=== PATIENT | female | born 1995 | race African-American/Black ===

== ENCOUNTER 2019-10-30 13:56 | Emergency (ER) | payer MEDICAID ==
[~2019-10-30] VITALS: Ht 170.2 cm; Wt 59.0 kg
[2019-10-30 14:37] VITALS: BP 124/84
[2019-10-30] MEDS ORDERED: IBUPROFEN 600MG TABLET PO STA (14:37)
== END 2019-10-30 15:16 | disposition home or self-care (01) ==
LOC: ER 13:56
DX: K02.9 Dental caries, unspecified (principal); Z98.890 Other specified postprocedural states
CPT/HCPCS: 99283

== ENCOUNTER 2022-01-05 10:56 | Emergency (ER) | payer MEDICAID ==
[~2022-01-05] VITALS: Ht 172.7 cm; Wt 59.0 kg
[2022-01-05 11:59] LABS: CLARITY URINE CLEAR (CLEAR); COLOR URINE YELLOW (YELLOW); KETONES URINE 1+ (NEGATIVE); LEUKOCYTE ESTERASE URINE NEGATIVE (NEGATIVE); NITRITE URINE NEGATIVE (NEGATIVE); OCCULT BLOOD URINE NEGATIVE (NEGATIVE); PROTEIN URINE TRACE (NEGATIVE); SPECIFIC GRAVITY URINE 1.027 (1.005-1.030)
[2022-01-05] MEDS ORDERED: METOCLOPRAMIDE HCL 10MG TABLET PO ONE (12:30)
[2022-01-05] MEDS ORDERED: ACETAMINOPHEN 325MG TABLET PO ONE (12:30)
[2022-01-05 13:37] LABS: BASOPHILS % 0.5 % (0.0-2.0); EOSINOPHILS % 2.6 % (0.0-5.0); HEMATOCRIT. 35.3 % (36.0-48.0); HEMOGLOBIN. 11.7 g/dL (12.0-16.0); LYMPHOCYTES % 36.6 % (20.0-50.0); MEAN CORPUSCULAR HEMOGLOBIN 26.2 pg (28.0-32.0); MEAN CORPUSCULAR VOLUME 79.2 fL (81.0-99.0); NEUTROPHILS % 49.3 % (40.0-76.0); PLATELET 194 x1000/uL (130-400); RED BLOOD CELL COUNT 4.45 mill/uL (4.2-5.4); RED CELL DISTRIBUTION WIDTH 15.6 % (11.6-14.6)
[2022-01-05 13:44] LABS: CHLORIDE 108 mEq/L (98-107)
[2022-01-05 13:57] LABS: B-HCG QUANTITATIVE < 1 mIU/mL (<3)
[2022-01-05] MEDS ORDERED: MUPI15CR11 TP (15:09)
[2022-01-05] MEDS ORDERED: CLOT15CR27 TP (15:09)
[2022-01-05 15:16] VITALS: BP 111/74
== END 2022-01-05 15:16 | disposition home or self-care (01) ==
LOC: ER 10:56
DX: R10.84 Generalized abdominal pain (principal); Z98.890 Other specified postprocedural states
CPT/HCPCS: 36415; 76700; 80053; 81003; 81025; 84702; 85025; 99284; J8597

== ENCOUNTER 2022-07-04 09:26 | Emergency (ER) | payer MEDICAID ==
[~2022-07-04] VITALS: Ht 172.7 cm; Wt 63.0 kg
[~2022-07-04 09:26] MED LIST: CLOT15CR27 TP; MUPI15CR11 TP
[2022-07-04 10:17] VITALS: BP 138/68
[2022-07-04] MEDS ORDERED: MAGNESIUM/ALUMINUM HYDROXIDE/SIMETHICONE 30ML UDC PO ONE (11:45)
[2022-07-04] MEDS ORDERED: HYDROCODONE/ACETAMINOPHEN 5/325MG TABLET PO ONE (11:45)
[2022-07-04 11:59] LABS: CLARITY URINE CLEAR (CLEAR); COLOR URINE YELLOW (YELLOW); KETONES URINE NEGATIVE (NEGATIVE); LEUKOCYTE ESTERASE URINE NEGATIVE (NEGATIVE); NITRITE URINE NEGATIVE (NEGATIVE); OCCULT BLOOD URINE TRACE (NEGATIVE); PROTEIN URINE NEGATIVE (NEGATIVE); SPECIFIC GRAVITY URINE 1.014 (1.005-1.030)
[2022-07-04 12:13] LABS: EOSINOPHILS % 2.7 % (0.0-5.0); HEMATOCRIT. 35.8 % (36.0-48.0); HEMOGLOBIN. 12.1 g/dL (12.0-16.0); LYMPHOCYTES % 35.3 % (20.0-50.0); MEAN CORPUSCULAR HEMOGLOBIN 28.2 pg (28.0-32.0); MEAN CORPUSCULAR VOLUME 83.2 fL (81.0-99.0); MEAN PLATELET VOLUME 7.9 fl (7.4-10.4); MONOCYTES % 10.4 % (2.0-8.0); NEUTROPHILS % 50.6 % (40.0-76.0); PLATELET 168 x1000/uL (130-400); RED CELL DISTRIBUTION WIDTH 14.9 % (11.6-14.6)
[2022-07-04 12:25] LABS: CHLORIDE 113 mEq/L (98-107)
[2022-07-04 12:56] LABS: HCG SCREEN NEGATIVE
[2022-07-04] MEDS ORDERED: T3 PO (14:02)
== END 2022-07-04 14:05 | disposition home or self-care (01) ==
LOC: ER 09:26
DX: R10.9 Unspecified abdominal pain (principal); Z98.890 Other specified postprocedural states
CPT/HCPCS: 36415; 74176; 76705; 80053; 81003; 81025; 84703; 85025; 99284

== ENCOUNTER 2022-09-16 21:57 | Emergency (ER) | payer MEDICAID ==
[~2022-09-16] VITALS: Ht 172.7 cm; Wt 63.0 kg
[2022-09-16 23:30] VITALS: BP 118/64
[2022-09-16] MEDS ORDERED: IBUPROFEN 800MG TABLET PO ONE (23:30)
[2022-09-16] MEDS ORDERED: ACETAMINOPHEN 325MG TABLET PO ONE (23:30)
[2022-09-17] MEDS ORDERED: CYCL5TAB MT (01:25)
[2022-09-17] MEDS ORDERED: IBUP-2029 MT (01:25)
== END 2022-09-17 01:50 | disposition home or self-care (01) ==
LOC: ER 21:57
DX: M54.9 Dorsalgia, unspecified (principal); F17.200 Nicotine dependence, unspecified, uncomplicated; Z98.890 Other specified postprocedural states
CPT/HCPCS: 72070; 81025; 99283

== ENCOUNTER 2022-10-22 10:18 | Emergency (ER) | payer MEDICAID ==
[~2022-10-22] VITALS: Ht 172.7 cm; Wt 63.0 kg
[~2022-10-22 10:18] MED LIST changes: +CYCL5TAB MT; +IBUP-2029 MT
[2022-10-22] MEDS ORDERED: PROM473S4 MT (13:38)
[2022-10-22] MEDS ORDERED: IBUP-2029 MT (13:38)
[2022-10-22 13:55] VITALS: BP 130/87
== END 2022-10-22 13:59 | disposition home or self-care (01) ==
LOC: ER 10:18
DX: R05.9 Cough, unspecified (principal); J02.9 Acute pharyngitis, unspecified; R07.89 Other chest pain; Z98.890 Other specified postprocedural states
CPT/HCPCS: 71045; 93005; 99283; Z7610